=== PATIENT | male | born 1980 | race Caucasian/White ===

== ENCOUNTER 2020-11-27 21:29 | Emergency (ER) | payer BC ==
[~2020-11-27] VITALS: Ht 170.2 cm; Wt 71.8 kg
[2020-11-27] MEDS ORDERED: NS 1,000 ML IV ONE (21:35)
[2020-11-27] MEDS ORDERED: methylPREDNISolone 125MG 2ML VIAL IV ONE (21:35)
[2020-11-27] MEDS ORDERED: FAMOTIDINE INJ 20MG/2ML VIAL (S0028 PER 1) IVP ONE (21:40)
[2020-11-27] MEDS ORDERED: ZYRTTAB8 PO (21:44)
[2020-11-28] MEDS ORDERED: DIPH25CA32 PO (00:29)
[2020-11-28] MEDS ORDERED: EPIP0.3I2 IM (00:29)
[2020-11-28] MEDS ORDERED: PRED20TA PO (00:29)
[2020-11-28 01:15] VITALS: BP 127/56
== END 2020-11-28 02:17 | disposition home or self-care (01) ==
LOC: M ED 21:29
DX: T78.3XXA Angioneurotic edema, initial encounter (principal); X58.XXXA Exposure to other specified factors, initial encounter; Y92.89 Other specified places as the place of occurrence of the external cause; J30.2 Other seasonal allergic rhinitis; J30.81 Allergic rhinitis due to animal (cat) (dog) hair and dander; Z79.899 Other long term (current) drug therapy
CPT/HCPCS: 93041; 94760; 96361; 96374; 96375; 99285; J2930